=== PATIENT | female | born 1930 | race African-American/Black ===

== ENCOUNTER 2019-07-03 14:25 | Emergency (ER) | payer MEDICARE, OTHER ==
[~2019-07-03] VITALS: Ht 160 cm; Wt 85.0 kg
[2019-07-03] MEDS ORDERED: ACETAMINOPHEN 325MG TABLET PO STA (19:25)
[2019-07-03 20:44] VITALS: BP 148/84
== END 2019-07-03 20:55 | disposition home or self-care (01) ==
LOC: ER 14:25
DX: S82.401A Unspecified fracture of shaft of right fibula, initial encounter for closed fracture (principal); I10 Essential (primary) hypertension; Z98.61 Coronary angioplasty status; W52.XXXA Crushed, pushed or stepped on by crowd or human stampede, initial encounter; Y93.89 Activity, other specified; Y92.89 Other specified places as the place of occurrence of the external cause; Y99.8 Other external cause status
CPT/HCPCS: 29515; 73590; 73610; 99283

== ENCOUNTER 2019-07-14 20:23 | Inpatient (IN) | payer MEDICARE, OTHER ==
[~2019-07-14] VITALS: Ht 167.6 cm; Wt 74.4 kg
[2019-07-14 20:30] VITALS: BP 158/79
[2019-07-14 20:40] VITALS: BP 158/79
[2019-07-14] MEDS ORDERED: SODIUM CHLORIDE 0.9% 1,000 ML IV SCH (22:25)
[2019-07-14] MEDS ORDERED: ONDANSETRON HCL 4MG/2ML INJ IV PRN ×2 (22:30)
[2019-07-14] MEDS ORDERED: CLONIDINE 0.1MG TABLET PO PRN (22:30)
[2019-07-14] MEDS ORDERED: HYDROCODONE/ACETAMINOPHEN 5/325MG TABLET PO PRN ×2 (22:30)
[2019-07-14] MEDS ORDERED: LORAZEPAM 2MG/ML CPJ IV PRN (22:30)
[2019-07-14] MEDS ORDERED: MORPHINE SULFATE 2 MG/ML CPJ (NOT FOR IM USE) IV PRN (22:30)
[2019-07-15] VITALS: BP 130/63
[2019-07-15] MEDS: SODIUM CHLORIDE 0.9% 1,000 ML IV SCH ×2 (00:23→09:58)
[2019-07-15] MEDS ORDERED: VANCOMYCIN 1250MG in DEXTROSE 5% WATER 250ML IV NR (01:00)
[2019-07-15 04:00] VITALS: BP 101/72
[2019-07-15 08:00] VITALS: BP 108/47
[2019-07-15] MEDS ORDERED: PNEUMOCOCCAL 23-VAL P-SAC VAC 0.5 ML IM ONE (08:00)
[2019-07-15 11:50] LABS: BASOPHILS % 0.6 % (0.0-2.0); EOSINOPHILS % 2.3 % (0.0-5.0); HEMATOCRIT. 38.9 % (36.0-48.0); HEMOGLOBIN. 13.1 g/dL (12.0-16.0); LYMPHOCYTES % 15.7 % (20.0-50.0); MEAN CORPUSCULAR HEMOGLOBIN 30.7 pg (28.0-32.0); MEAN CORPUSCULAR VOLUME 91.1 fL (81.0-99.0); MEAN PLATELET VOLUME 11.4 fl (7.4-10.4); MONOCYTES % 10.7 % (2.0-8.0); NEUTROPHILS % 70.7 % (40.0-76.0); PLATELET 158 x1000/uL (130-400); RED BLOOD CELL COUNT 4.27 mill/uL (4.2-5.4); RED CELL DISTRIBUTION WIDTH 13.6 % (11.6-14.6)
[2019-07-15 12:00] VITALS: BP 129/71
[2019-07-15 12:07] LABS: CHLORIDE 107 mEq/L (98-107)
[2019-07-15] MEDS ORDERED: KCL 20MEQ/100ML PREMIX 100 ML IV NR (13:00)
[2019-07-15 16:00] VITALS: BP 109/69
[2019-07-15] MEDS: ENOXAPARIN 40MG/0.4ML SYR SUBCUT SCH (17:32)
[2019-07-15] MEDS ORDERED: VANCOMYCIN 750 MG PREMIX 150 ML IV SCH (19:00)
[2019-07-15 20:00] VITALS: BP 153/87
[2019-07-15] MEDS: ZOLPIDEM TARTRATE 5MG TABLET PO PRN (23:11)
[2019-07-16] VITALS: BP 132/73
[2019-07-16 04:00] VITALS: BP 139/94
[2019-07-16 08:00] VITALS: BP 125/71
[2019-07-16] MEDS: POTASSIUM CHLORIDE 20MEQ TABLET SR PO SCH (08:33)
[2019-07-16] MEDS: ENOXAPARIN 40MG/0.4ML SYR SUBCUT SCH (08:34)
[2019-07-16 08:39] LABS: CLARITY URINE TURBID (CLEAR); COLOR URINE YELLOW (YELLOW); KETONES URINE NEGATIVE (NEGATIVE); LEUKOCYTE ESTERASE URINE 1+ (NEGATIVE); NITRITE URINE NEGATIVE (NEGATIVE); OCCULT BLOOD URINE TRACE (NEGATIVE); PROTEIN URINE NEGATIVE (NEGATIVE); SPECIFIC GRAVITY URINE 1.014 (1.005-1.030)
[2019-07-16 10:41] LABS: EOSINOPHILS % 2.3 % (0.0-5.0); HEMATOCRIT. 41.4 % (36.0-48.0); HEMOGLOBIN. 13.9 g/dL (12.0-16.0); LYMPHOCYTES % 20.7 % (20.0-50.0); MEAN CORPUSCULAR HEMOGLOBIN 30.2 pg (28.0-32.0); MEAN CORPUSCULAR VOLUME 90.3 fL (81.0-99.0); MEAN PLATELET VOLUME 11.7 fl (7.4-10.4); MONOCYTES % 12.4 % (2.0-8.0); NEUTROPHILS % 63.6 % (40.0-76.0); PLATELET 174 x1000/uL (130-400); RED BLOOD CELL COUNT 4.58 mill/uL (4.2-5.4); RED CELL DISTRIBUTION WIDTH 13.7 % (11.6-14.6)
[2019-07-16 10:56] LABS: CHLORIDE 109 mEq/L (98-107)
[2019-07-16] MEDS ORDERED: LEVOFLOXACIN 500MG TABLET PO SCH ×2 (11:00→12:00)
[2019-07-16 11:02] LABS: PHOSPHORUS 2.7 mg/dL (2.5-4.9)
[2019-07-16 12:00] VITALS: BP 107/60
[2019-07-16 16:00] VITALS: BP 139/91
[2019-07-16 20:00] VITALS: BP 148/98
[2019-07-16] MEDS: ZOLPIDEM TARTRATE 5MG TABLET PO PRN (22:08)
[2019-07-17] VITALS: BP 145/92
[2019-07-17 04:00] VITALS: BP 143/93
[2019-07-17 08:00] VITALS: BP 146/88
[2019-07-17] MEDS: POTASSIUM CHLORIDE 20MEQ TABLET SR PO SCH (08:48)
[2019-07-17] MEDS: ENOXAPARIN 40MG/0.4ML SYR SUBCUT SCH (08:48)
[2019-07-17] MEDS: LEVOFLOXACIN 250MG TABLET PO SCH (10:37)
[2019-07-17 12:00] VITALS: BP 130/86
[2019-07-17 13:09] LABS: TOTAL IRON BINDING CAPACITY 278 ug/dL (250-450)
[2019-07-17 16:00] VITALS: BP 128/78
[2019-07-17 20:00] VITALS: BP 123/66
[2019-07-17] MEDS: ZOLPIDEM TARTRATE 5MG TABLET PO PRN (21:54)
[2019-07-18] VITALS: BP 121/76
[2019-07-18 04:00] VITALS: BP 135/70
[2019-07-18 08:00] VITALS: BP 117/54
[2019-07-18] MEDS: ENOXAPARIN 40MG/0.4ML SYR SUBCUT SCH (09:54)
[2019-07-18] MEDS: POTASSIUM CHLORIDE 20MEQ TABLET SR PO SCH (09:55)
[2019-07-18] MEDS: LEVOFLOXACIN 250MG TABLET PO SCH (10:01)
[2019-07-18 12:00] VITALS: BP 117/62
[2019-07-18 16:00] VITALS: BP 102/76
[2019-07-18 16:52] VITALS: BP 102/76
== END 2019-07-18 17:34 | DRG 493 ==
LOC: 6EST 20:23
PROVIDERS: ADMIT Internal Medicine Nephrology; ATTEND Internal Medicine Nephrology
PROC: 0S9F0ZZ Drainage of Right Ankle Joint, Open Approach (ICD-10-PCS; principal; 2019-07-15)
DX: S82.832A Other fracture of upper and lower end of left fibula, initial encounter for closed fracture (principal); S82.201A Unspecified fracture of shaft of right tibia, initial encounter for closed fracture; E87.6 Hypokalemia; F03.90 Unspecified dementia, unspecified severity, without behavioral disturbance, psychotic disturbance, mood disturbance, and anxiety; I10 Essential (primary) hypertension; L97.519 Non-pressure chronic ulcer of other part of right foot with unspecified severity; W18.39XA Other fall on same level, initial encounter; Z91.19 Patient's noncompliance with other medical treatment and regimen; Y93.89 Activity, other specified; Y92.89 Other specified places as the place of occurrence of the external cause; Y99.8 Other external cause status; Z79.899 Other long term (current) drug therapy
CPT/HCPCS: 36415; 73610; 80048; 81003; 83540; 83550; 83735; 84100; 85025; 97162; 97166; 97530; J1650; J2060; J3370; J3480; J7030; J7060